=== PATIENT | female | born 1985 | race American Indian/Alaskan Native ===

== ENCOUNTER 2021-04-05 11:55 | Emergency (ER) | payer SELFPAY ==
[2021-04-05 12:57] VITALS: BP 116/75
== END 2021-04-07 04:14 ==
LOC: ED 11:55
DX: R20.0 Anesthesia of skin (principal); Z53.21 Procedure and treatment not carried out due to patient leaving prior to being seen by health care provider

== ENCOUNTER 2021-04-20 09:18 | Emergency (ER) | payer SELFPAY ==
--- NOTE | 2021-04-20 10:20 | Event Note ---
ED Screening Note ED Screening Note: TEARFUL ON EXAM CO DIFFICULTY WALKING DUE TO BLE WEAKNESS STATES SHE CAN WALK BUT "HAS TO PACE HERSELF" SPASTICITY OF BLE SHE HAS BEEN SEEN AT [facility] EM[facility] FOR THIS - BEST I CAN TELL FROM PT IT WAS A CT SCAN AND SHE WAS TOLD TOLD IT WAS OK. TREMOR ALSO NOTED DENIES ETOH OR DRUGS OTHER THAN THC DENIES TRAUMA/DENIES BACK PAIN PMH ANEMIA DENIES MH HX PSH CSEC X 2 LMP 04/03 NO HOME MEDS This initial assessment/diagnostic orders/clinical plan/treatment(s) is/are subject to change based on patients health status, clinical progression and re- assessment by fellow clinical providers in the ED. Further treatment and workup at subsequent clinical providers discretion. Patient/guardian urged not to elope from the ED as their condition may be serious if not clinically assessed and managed. Initial orders include: CONCERNED FOR MS OR OTHER NEURO DISEASE PROCESS CAUSING SYMPTOMS
[2021-04-20 12:04] LABS: Basophils % (Auto) 0.8 % (0.0-1.8); Eosinophils # (Auto) 0.2 K/mm3 (0.0-0.4); Eosinophils % (Auto) 3.9 % (0.0-4.3); Hematocrit 38.3 % (30.3-42.9); Hemoglobin 12.4 gm/dl (10.1-14.3); Lymphocytes # (Auto) 1.6 K/mm3 (1.2-5.4); Lymphocytes % (Auto) 33.7 % (13.4-35.0); Mean Corpuscular HGB Conc 32 % (30-34); Mean Corpuscular Volume 73 fl (79-97); Monocytes # (Auto) 0.5 K/mm3 (0.0-0.8); Monocytes % (Auto) 10.9 % (0.0-7.3); Platelet Count 399 K/mm3 (140-440); Red Blood Count 5.25 M/mm3 (3.65-5.03); Red Cell Distribution Width 17.9 % (13.2-15.2)
[2021-04-20 12:15] LABS: Alanine Aminotransferase 8 units/L (7-56); Albumin 4.3 g/dL (3.9-5); BUN/Creatinine Ratio 10; Blood Urea Nitrogen 8 mg/dL (7-17); Calcium 9.1 mg/dL (8.4-10.2); Hemolysis Index 3
[2021-04-20 12:18] LABS: Creatine Kinase MB < 1.0 ng/mL (0.0-4.0)
--- NOTE | 2021-04-20 12:40 | Cat Scan Report ---
CT HEAD WITHOUT CONTRAST INDICATION / CLINICAL INFORMATION: NEW ONSET TREMOR AND SPASTICITY OF BLE. TECHNIQUE: Axial imaging performed from the skull apex through the skull base without the use of cont rast. Sagittal and coronal reformatted images. All CT scans at this location are performed using CT dose reduction for ALARA by means of automated exposure control. COMPARISON: None available. FINDINGS: CEREBRAL PARENCHYMA: No acute parenchymal abnormality is appreciated. The kessler-white interface is wel l-defined. There is mild nonspecific hypoattenuation in the white matter of the parietal lobes, right greater than left. This is a nonspecific finding but could be related to microangiopathy (hypertensi on, diabetes, atherosclerosis). HEMORRHAGE: None. EXTRA-AXIAL SPACES: Normal in size and morphology for the patient's age. VENTRICULAR SYSTEM: Normal in size and morphology for the patient's age. MIDLINE SHIFT OR HERNIATION: None. CEREBELLUM / BRAINSTEM: No significant abnormality. CALVARIUM: No significant abnormality. ORBITS: Normal as visualized. PARANASAL SINUSES / MASTOID AIR CELLS: The visualized sinuses are clear. The mastoid air cells did no t develop or hypoplastic bilaterally. SOFT TISSUES of HEAD: No significant abnormality. ADDITIONAL FINDINGS: None. IMPRESSION: No acute intracranial abnormality. Mild nonspecific chronic white matter changes as described. Signer Name: Deepak Weston Jr, MD Signed: 04/20/2021 12:36 PM Workstation Name: [id number]
--- NOTE | 2021-04-20 14:05 | Emergency Department Report ---
Blank Doc - Documentation Documentation: [facility] Consult Note # Demographics Consult Type: General Neurology Patient Location: Emergency Room First Name: bello Last Name: tim Date of : 1985 Age: 35 Gender: Female Facility: [facility] Time of Initial Page (Eastern Time): 04/20/2021, 13:31 Time of Return Call (Eastern Time): 04/20/2021, 13:32 # HPI History: pt present with 1 week of bilateral LE numbness. quit her job because of this numbness. seen at an outside hospital where a CT Head was done. she has normal strength and reflexes on exam. rectal tone is normal. she is reporting numbness in LE. UE have tremors which she reports is worsening in the last 2 weeks. she reports feeling nausea, lightheaded # Exam Mental Status: awake alert and oriented x 3 follows commands Language: normal speech Cranial Nerves: normal Motor: no drift Sensory: reduced in LE Cerebellar: normal cerebellar exam postural tremor in UE # Data Head CT: area of white matter changes most pronounced in the right parietal lobe. this is more in the periphery # Assessment Impression: worsening paresthesias and tremors. abnoraml CT, iker for age # Plan Imaging: (urgency: routine): MRI Brain with AND without contrast MRI C spine wwo contrast for both Additional Recommendations: Further work-up based on MRI results # Logistics Telemedicine: Interactive 2 way audio and visual telecommunication technology was utilized during this visit
--- NOTE | 2021-04-20 14:16 | Emergency Department Report ---
ED General Adult HPI - General Chief complaint: Neuro Symptoms/Deficit Stated complaint: LIGHT HEADED/VOMITING Time Seen by Provider: 04/20/21 10:16 Source: patient Mode of arrival: Ambulatory Limitations: No Limitations - History of Present Illness Initial comments: pt presents to ed with complaint of leg numbness x 1 week -: Gradual, week(s) Location: lower extremity Radiation: non-radiation - Related Data Previous Rx's Medication Instructions Recorded Last Taken Type Famotidine [Pepcid] 20 mg PO BID #40 tablet 09/28/14 Unknown Rx Hyoscyamine Subl [Levsin Sl 0.125 0.125 mg SL Q6HR PRN #20 tab 09/28/14 Unknown Rx TAB] Promethazine [Phenergan TAB] 25 mg PO Q6HR PRN #25 tab 09/28/14 Unknown Rx Cyclobenzaprine [Flexeril 10 MG 10 mg PO QHS #20 tablet 01/31/18 Unknown Rx TAB] Ibuprofen [Motrin 800 MG tab] 800 mg PO TID #30 tablet 01/31/18 Unknown Rx Cyclobenzaprine [Flexeril] 10 mg PO QHS PRN #10 tablet 02/28/18 Unknown Rx Ibuprofen [Motrin] 600 mg PO Q8H PRN #20 tablet 02/28/18 Unknown Rx Allergies Allergy/AdvReac Type Severity Reaction Status Date / Time No Known Allergies Allergy Verified 01/31/18 18:38 ED Review of Systems ROS: Stated complaint: LIGHT HEADED/VOMITING Other details as noted in HPI Constitutional: denies: chills, fever Eyes: denies: eye pain, eye discharge, vision change ENT: denies: ear pain, throat pain Respiratory: denies: cough, shortness of breath, wheezing Cardiovascular: denies: chest pain, palpitations Endocrine: no symptoms reported Gastrointestinal: denies: abdominal pain, nausea, diarrhea Genitourinary: denies: urgency, dysuria, discharge Musculoskeletal: denies: back pain, joint swelling, arthralgia Skin: denies: rash, lesions Neurological: denies: headache, weakness, paresthesias Psychiatric: denies: anxiety, depression Hematological/Lymphatic: denies: easy bleeding, easy bruising ED Past Medical Hx - Past Medical History Previous Medical History?: Yes Additional medical history: Blood transfusion, Anemia - Surgical History Past Surgical History?: Yes Additional Surgical History: x 2 - Social History Smoking Status: Current Every Day Smoker Substance Use Type: None - Medications Home Medications: Home Medications Medication Instructions Recorded Confirmed Last Taken Type Famotidine [Pepcid] 20 mg PO BID #40 tablet 09/28/14 Unknown Rx Hyoscyamine Subl [Levsin Sl 0.125 0.125 mg SL Q6HR PRN #20 tab 09/28/14 Unknown Rx TAB] Promethazine [Phenergan TAB] 25 mg PO Q6HR PRN #25 tab 09/28/14 Unknown Rx Cyclobenzaprine [Flexeril 10 MG 10 mg PO QHS #20 tablet 01/31/18 Unknown Rx TAB] Ibuprofen [Motrin 800 MG tab] 800 mg PO TID #30 tablet 01/31/18 Unknown Rx Cyclobenzaprine [Flexeril] 10 mg PO QHS PRN #10 tablet 02/28/18 Unknown Rx Ibuprofen [Motrin] 600 mg PO Q8H PRN #20 tablet 02/28/18 Unknown Rx ED Physical Exam - General Limitations: No Limitations General appearance: alert, in no apparent distress - Head Head exam: Present: atraumatic, normocephalic - Eye Eye exam: Present: normal appearance - ENT ENT exam: Present: mucous membranes moist - Neck Neck exam: Present: normal inspection - Respiratory Respiratory exam: Present: normal lung sounds bilaterally. Absent: respiratory distress - Cardiovascular Cardiovascular Exam: Present: regular rate, normal rhythm. Absent: systolic murmur, diastolic murmur, rubs, gallop - GI/Abdominal GI/Abdominal exam: Present: soft, normal bowel sounds - Extremities Exam Extremities exam: Present: normal inspection - Back Exam Back exam: Present: normal inspection - Neurological Exam Neurological exam: Present: alert, oriented X3 - Expanded Neurological Exam Expanded Neurological exam: Present: tremor Sensory exam: UE 2 Point Discrimination: Abnormal Right, Lower Extremity Light Touch: Abnormal Right, Abnormal Left, Lower Extremity Pin Prick: Abnormal Right, Abnormal Left, Lower Extremity Temperature: Abnormal Right, Abnormal Left, LE 2 Point Discrimination: Abnormal Right, Abnormal Left - Psychiatric Psychiatric exam: Present: normal affect, normal mood - Skin Skin exam: Present: warm, dry, intact, normal color. Absent: rash ED Course Vital Signs 04/20/21 10:01 Temperature 98.2 F Pulse Rate 101 H Respiratory 16 Rate Blood Pressure 108/81 [Left] O2 Sat by Pulse 94 Oximetry - Reevaluation(s) Reevaluation #1: 04/20/21 14:17 CT head abnormal , spoke with neurology will admiot for MRI head adn spine ED Medical Decision Making - Lab Data Result diagrams: 04/20/21 11:38 04/20/21 11:38 Critical care attestation.: If time is entered above; I have spent that time in minutes in the direct care of this critically ill patient, excluding procedure time. ED Disposition Clinical Impression: Weakness, Neurological deficit present Disposition: ADMITTED INPATIENT Is pt being admited?: No Does the pt Need Aspirin: No Condition: Stable Referrals: PRIMARY CARE, [Primary Care Provider] - 3-5 Days
[2021-04-20 14:43] VITALS: BP 104/68
--- NOTE | 2021-04-20 16:27 | Event Note ---
Date: 04/20/21 Patient was seen and evaluated Physical examination done Patient has a history of numbness in both the lower extremities for the past 2- 1/2 to 3 weeks. Able to walk normally. Patient went to [place] 2 days ago and was given a CAT scan. Of the head. Was normal. Patient was discharged from the emergency room. Patient comes to [facility] for further evaluation. Other than numbness in both the lower extremities patient is asymptomatic and able to walk. No ataxia. No cranial nerve signs like nasal regurgitation of fluids diplopia etc. Sensory loss could not be made out below the waist Patient able to walk normally No motor deficits Clinical picture not consistent with [place], transverse myelitis, multiple sclerosis. Patient needs extensive work-up was a outpatient. Patient referred to Dr. Syd Gil and Dr. Chris Thomason--- the neurologists in [facility] Discharge diagnosis Peripheral neuropathy Gabapentin 100 mg every 12 hours Prescriptions given Discharge paperwork given
== END 2021-04-21 19:50 | disposition home or self-care (01) ==
LOC: ED 09:18
DX: R53.1 Weakness (principal); R41.4 Neurologic neglect syndrome; F17.200 Nicotine dependence, unspecified, uncomplicated
CPT/HCPCS: 36415; 70450; 80053; 80320; 82550; 82553; 84484; 85025; 99284; G0480